=== PATIENT | male | born 1965 | race Caucasian/White ===

== ENCOUNTER 2017-02-01 13:13 | Emergency (ER) | payer OTHER ==
[~2017-02-01] VITALS: Ht 175.3 cm; Wt 79.4 kg
[2017-02-01 13:13] VITALS: BP 129/87; PULSE 102; RESP 16; TEMP 98.9; O2SAT 100
--- NOTE | 2017-02-01 13:13 | NUR ---
KRYSTIAN Carey from home. Placed in room 05. Placed on cook starch, blood pressure machine and pulse oximeter. To gown for exam. Side rails up.
--- NOTE | 2017-02-01 13:15 | NUR ---
Pt c/o upper arm and hand tingling and lower extremitiy tingling 1.5 hours. States that he has had spinal fusion and needs surgery on his neck. Also states that he is having difficulty with pronation of left arm and that he has had difficulty in right arm in the past. +Neck pain (chronic). Took Robaxin GENERAL INTERN.
--- NOTE | 2017-02-01 13:35 | NUR ---
Dr. Chavira at bedside for evaluation
[2017-02-01 13:36] LABS: BILIRUBIN,URINE NEGATIVE (NEGATIVE); BLOOD, URINE NEGATIVE (NEGATIVE); CLARITY/URINE CLEAR (CLEAR); COLOR,URINE YELLOW (YELLOW); GLUCOSE,URINE NEGATIVE (NEGATIVE); KETONES,URINE NEGATIVE (NEGATIVE); LEUKOCYTE ESTERASE ,URINE NEGATIVE (NEGATIVE); NITRITE, URINE NEGATIVE (NEGATIVE); PH,URINE 7.5 (5.0-8.0); PROTEIN URINE NEGATIVE (NEGATIVE); UROBILINOGEN,URINE 0.2 (0.2-1.0)
--- NOTE | 2017-02-01 13:45 | NUR ---
Phleb at bedside for blood draw using 2 patient identifiers.
[2017-02-01 13:49] LABS: BARBITURATE, URINE NEGATIVE (NEG <=200); BENZODIAZEPINE, URINE NEGATIVE (NEG <=150); CANNABINOID, URINE POSITIVE (NEG <=50); COCAINE, URINE NEGATIVE (NEG <=150); METHAMPHETAMINES SCREEN,URINE POSITIVE (NEG <=500); OPIATE, URINE NEGATIVE (NEG <=100); PHENCYCLIDINE SCREEN,URINE NEGATIVE (NEG <=25); UR TRICYCLIC ANTIDEPRESSANTS NEGATIVE (NEG <=300); URINE AMPHETAMINE POSITIVE (NEG <=500); URINE METHADONE NEGATIVE (NEG <=200); URINE OXYCODONE SCREEN NEGATIVE (NEG <=100); URINE PROPOXYPHENE SCREEN NEGATIVE (NEG <=300)
--- NOTE | 2017-02-01 14:05 | NUR ---
Patient does not wish to proceed with medical care recommended by Dr. Yap. Patient given information related to possible complications,up to and including , which could occur as a result of leaving hospital at this time. Patient verbalizes understanding of risks involved leaving against medical advice. Patient has signed AMA form.
[2017-02-01 14:32] VITALS: BP 129/87; PULSE 90; RESP 20; TEMP 98
== END 2017-02-01 14:12 | disposition left against medical advice (07) ==
LOC: SED 13:13
DX: M54.12 Radiculopathy, cervical region (principal); Z53.20 Procedure and treatment not carried out because of patient's decision for unspecified reasons
CPT/HCPCS: 80307; 81003; 99284; 99285